=== PATIENT | male | born 1995 | race Caucasian/White ===

== ENCOUNTER 2021-09-14 20:26 | Emergency (ER) | payer OTHER ==
[~2021-09-14] VITALS: Ht 190.5 cm; Wt 90.7 kg
[2021-09-14] MEDS ORDERED: PREDNISONE50 MG PO (22:33)
[2021-09-14] MEDS ORDERED: PROAIR HFA8.5 GM INH (22:33)
[2021-09-14 22:49] VITALS: BP 140/58
== END 2021-09-14 22:49 | disposition home or self-care (01) ==
LOC: M.ERS 20:26
DX: J45.901 Unspecified asthma with (acute) exacerbation (principal); Z20.822 Contact with and (suspected) exposure to COVID-19; F17.210 Nicotine dependence, cigarettes, uncomplicated; Z90.89 Acquired absence of other organs; Z88.1 Allergy status to other antibiotic agents